=== PATIENT | male | born 1935 | race Caucasian/White ===

== ENCOUNTER → 2021-11-26 | Day surgery (SDC) | payer MEDICARE ==
[2021-11-22 13:36] VITALS: BMI 22.7
[~2021-11-26] MED LIST: LACTATED RINGERS 1,000 ML IV SCH; LIDOCAINE 1% (10MG/ML) FOR IV START INTRADERMA PRN; PROPOFOL 10 MG/ML 20 ML VIAL IV ONE
[2021-11-26 08:52] VITALS: RESP 16; TEMP 96.3
--- NOTE | 2021-11-26 10:02 | P.PCN ---
Date of Procedure: 11/26/21 Procedure(s) Performed: BRIEF HISTORY: Patient is a 86-year-old pleasant white male scheduled for an elective colonoscopy as a part of value should of positive Cologuard. PROCEDURE PERFORMED: Colonoscopy. PREOPERATIVE DIAGNOSIS: Positive cologuard. IV sedation per Anesthesia. PROCEDURE: After informed consent was obtained, the patient, was brought into the endoscopy unit. IV sedation was administered by Anesthesia under continuous monitoring. Digital rectal examination was normal. Initially the Olympus CF-160 flexible video colonoscope was then inserted in the rectum, gradually advanced into the cecum without any difficulty. Careful examination was performed as the scope was gradually being withdrawn. Ileocecal valve and the appendiceal orifice were visualized and appeared normal. Prep was fair.. Mucosa of the cecum, ascending colon, transverse colon, descending colon, sigmoid colon, and rectum appeared normal. Moderate sigmoid diverticulosis Retroflexion was performed in the rectum and monitor hemorrhoids were seen. The patient tolerated the procedure well. IMPRESSION: Normal-appearing colon from rectum to cecum with no evidence of colorectal neoplasia . Moderate sigmoid diverticulosis Small internal hemorrhoids RECOMMENDATIONS: Findings of this examination were discussed with the patient as well his family. He was advised to be a high-fiber diet and take fiber supplements a regular basis..
[2021-11-26 10:25] VITALS: BP 118/76; PULSE 81
== END ==
LOC: ORWHC2ENDO 07:43
PROVIDERS: ATTEND Internal Medicine Gastroenterology
DX: K62.5 Hemorrhage of anus and rectum (principal); K57.30 Diverticulosis of large intestine without perforation or abscess without bleeding; K64.8 Other hemorrhoids
CPT/HCPCS: 45378; J2704

== ENCOUNTER → 2021-12-19 | Outpatient (CLI) | payer MEDICARE ==
--- NOTE | 2021-12-19 07:42 | US ---
EXAMINATION TYPE: US abdomen comp/pelvis limited DATE OF EXAM: 12/19/2021 COMPARISON: NONE CLINICAL HISTORY: ABD PAIN. RLQ pain for a few weeks, described as sharp pain within RLQ, no known in jury, cholecystectomy EXAM MEASUREMENTS: Liver Length: 14.6 cm Gallbladder Wall: Surgically absent CBD: 0.4 cm Spleen: 9.2 cm Right Kidney: 9.4 x 4.2 x 4.6 cm Left Kidney: 9.9 x 4.7 x 5.4 cm Pancreas: not seen due to bowel gas Liver: intercostal imaging due to bowel gas, wnl Gallbladder: Surgically absent CBD: wnl Spleen: wnl Right Kidney: wnl Left Kidney: wnl Upper IVC: wnl Abd Aorta: distal view only appears wnl Bladder: wnl Bilateral Jets Seen yes RLQ and LLQ - normal peristalsing bowel seen with no focal abnormality to account for patients sympto ms. IMPRESSION: No significant abnormality appreciated at this time.
== END | disposition home or self-care (01) ==
LOC: RADUSWWP 06:48
PROVIDERS: ATTEND Family Medicine
DX: R10.30 Lower abdominal pain, unspecified (principal)
CPT/HCPCS: 76700; 76857

== ENCOUNTER → 2021-12-20 | Outpatient (CLI) | payer MEDICARE ==
[2021-12-20 15:37] LABS: African American GFR (CKD) >90 (>60 ml/min/1.73 sqM); Blood Urea Nitrogen 24 mg/dL (9-20); Non-African American GFR(CKD) 81 (>60 ml/min/1.73 sqM)
--- NOTE | 2021-12-20 18:10 | CT ---
EXAMINATION TYPE: CT abdomen pelvis w con CT DLP: 1023 mGycm, Automated exposure control for dose reduction was used. DATE OF EXAM: 12/20/2021 5:10 PM COMPARISON: None CLINICAL INDICATION:Male, 86 years old with history of R10.30 Lower abd pain R10.813 RLQ abd tenderne ss; Lower abd pain, RLQ abd tenderness TECHNIQUE: Standard CT of the abdomen and pelvis following the administration of 100 cc of Isovue 3 00 IV contrast material and oral contrast. Coronal and sagittal reformats were performed. FINDINGS: LOWER CHEST: Moderate severe coronary artery atherosclerosis. ABDOMEN LIVER: Unremarkable GALLBLADDER AND BILE DUCTS: Unremarkable. PANCREAS: Unremarkable. SPLEEN: Unremarkable. ADRENAL GLANDS: Unremarkable. KIDNEYS AND URETERS: No evidence of hydronephrosis or renal calculus. The ureters are unremarkable. PELVIS BLADDER: Bilateral dilation of the ureters as they attach to the bladder. Are present REPRODUCTIVE: Unremarkable. ABDOMEN & PELVIS STOMACH AND BOWEL: There is a large stool burden throughout the colon with multiple colonic diverticu la present. No evidence of bowel obstruction. The appendix is not definitively visualized. PERITONEUM: No evidence of pneumoperitoneum or free fluid. VASCULATURE: No evidence of aortic aneurysm. Moderate atherosclerosis of the arterial vasculature. MUSCULOSKELETAL: No acute osseous abnormalities. Multilevel disc degeneration changes of the spine wi th dextro scoliosis apex L4. Grade 2 anterolisthesis of L5 on S1 with disc uncovering and moderate bi lateral neural foraminal stenosis. 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 LYMPH NODES: No gross evidence for lymphadenopathy. SOFT TISSUE/ABDOMINAL WALL: Unremarkable IMPRESSION: 1. Large stool burden throughout the colon without evidence for acute process to explain the patient 's pain. 2. Colonic diverticulosis. 3. Bilateral periureteral diverticula. 4. Grade 2 anterolisthesis of L5 on S1 disc uncovering, bilateral spondylolysis and bilateral modera te neural foraminal stenosis 5. Moderate to severe coronary artery atherosclerosis.
== END | disposition home or self-care (01) ==
LOC: RADCTMAIN 14:59
PROVIDERS: ATTEND Physician Assistant
DX: K57.30 Diverticulosis of large intestine without perforation or abscess without bleeding (principal); M43.07 Spondylolysis, lumbosacral region; I25.10 Atherosclerotic heart disease of native coronary artery without angina pectoris
CPT/HCPCS: 82565; 84520; 74177; 36415; Q9967

== ENCOUNTER → 2021-12-25 | Outpatient (CLI) | payer MEDICARE ==
--- NOTE | 2021-12-25 14:43 | XR ---
Limited right hip HISTORY: Right hip pain 2 views the right hip Correlation CT abdomen pelvis 12/20/2021 Bone mineralization is reduced. There is some mild marginal spurring, concentric joint space loss pre sent. Alignment is maintained. There is no fracture or dislocation. Degenerative disc changes are not ed in the lower lumbar spine. There are dense vascular calcifications present. 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
== END | disposition home or self-care (01) ==
LOC: RADXRYALE 13:15
PROVIDERS: ATTEND Physician Assistant
DX: M25.551 Pain in right hip (principal); M43.06 Spondylolysis, lumbar region; M51.36 Other intervertebral disc degeneration, lumbar region
CPT/HCPCS: 73501

== ENCOUNTER → 2022-10-29 | Outpatient (CLI) | payer MEDICARE ==
--- NOTE | 2022-10-29 17:36 | US ---
EXAMINATION TYPE: US venous doppler duplex LE RT DATE OF EXAM: 10/29/2022 5:27 PM COMPARISON: NONE CLINICAL INDICATION: Male, 87 years old with history of M79.661 RLE, I82.401 ACUTE EMBOLISM THROMBOSI S UNSP; Right calf pain. On blood thinners. No hx of DVT SIDE PERFORMED: Right TECHNIQUE: The lower extremity deep venous system is examined utilizing real time linear array sonog shagufta with graded compression, doppler sonography and color-flow sonography. VESSELS IMAGED: Common Femoral Vein Deep Femoral Vein Greater Saphenous Vein * Femoral Vein Popliteal Vein Small Saphenous Vein * Proximal Calf Veins (* superficial vessels) Right Leg: Negative for DVT IMPRESSION: Grayscale, color doppler, spectral doppler imaging performed of the deep veins of the lo wer extremities. There is normal flow, compressibility, vascular waveforms.
== END | disposition home or self-care (01) ==
LOC: RADUSWWP 17:06
PROVIDERS: ATTEND Family Medicine
DX: M79.661 Pain in right lower leg (principal); I82.401 Acute embolism and thrombosis of unspecified deep veins of right lower extremity

== ENCOUNTER → 2022-12-24 | Outpatient (CLI) | payer MEDICARE ==
--- NOTE | 2022-12-25 13:03 | CA ---
Transthoracic Echo Report Name: Maikel Rockwell Age: 87 Gender: M : 1935 Exam Date: 12/24/2022 13:04 Exam Location: [place] [facility] Ht (in): 67 Wt (lb): 140 Ordering Physician: Darwin Estrella DO Attending/Referring Phys: Cold Strip Feeder Palmira Decker [facility] Procedure CPT: Indications: i35.0 Cardiac Hx: Technical Quality: Fair Contrast 1: Total Dose (mL): Contrast 2: Total Dose (mL): MEASUREMENTS (Male / Female) Normal Values 2D ECHO LV Diastolic Diameter PLAX 4.7 cm 4.2 - 5.9 / 3.9 - 5.3 cm LV Systolic Diameter PLAX 3.4 cm IVS Diastolic Thickness 1.0 cm 0.6 - 1.0 / 0.6 - 0.9 cm LVPW Diastolic Thickness 1.0 cm 0.6 - 1.0 / 0.6 - 0.9 cm LV Relative Wall Thickness 0.4 LVOT Diameter 2.0 cm Ascending Aorta Diameter 2.9 cm M-MODE Aortic Root Diameter MM 2.8 cm LA Systolic Diameter MM 4.2 cm LA Ao Ratio MM 1.5 AV Cusp Separation MM 0.7 cm DOPPLER AV Peak Velocity 279.9 cm/s AV Peak Gradient 31.3 mmHg AV Mean Velocity 191.9 cm/s AV Mean Gradient 16.4 mmHg AV Velocity Time Integral 65.0 cm LVOT Peak Velocity 107.3 cm/s LVOT Peak Gradient 4.6 mmHg LVOT Velocity Time Integral 25.9 cm LVOT Stroke Volume 81.6 cm??? LVOT Stroke Volume Index 47.0 ml/m??? LVOT Cardiac Index 2495.5 cm???/min???m??? AV Area Cont Eq vti 1.3 cm??? AV Area Cont Eq pk 1.2 cm??? MV Peak Velocity 110.5 cm/s MV Peak Gradient 4.9 mmHg MV Mean Velocity 49.3 cm/s MV Mean Gradient 1.3 mmHg MV Velocity Time Integral 31.6 cm MR Peak Velocity 527.7 cm/s MR Peak Gradient 111.4 mmHg Mitral E Point Velocity 108.2 cm/s MV Deceleration Time 162.7 ms LV E' Lateral Velocity 11.7 cm/s Mitral E to LV E' Lateral Ratio 9.3 LV E' Septal Velocity 7.7 cm/s Mitral E to LV E' Septal Ratio 14.1 TR Peak Velocity 298.8 cm/s TR Peak Gradient 35.7 mmHg Right Atrial Pressure 15.0 mmHg Pulmonary Artery Systolic Pressu 50.7 mmHg Right Ventricular Systolic Press 50.7 mmHg FINDINGS Left Ventricle Mildly increased left ventricular wall thickness. Left ventricular wall thickness at upper limits of normal. No obvious regional wall motion abnormalities. Left ventricular ejection fraction is estimated at 50-55%. Right Ventricle Mild right ventricular dilatation. Moderate pulmonary hypertension. Right Atrium Moderate right atrial dilatation. Left Atrium Severe left atrial dilatation. Mitral Valve Structurally normal mitral valve. Moderate mitral regurgitation. Aortic Valve Diffuse thickening of the aortic valve cusps with reduced excursion. Moderate aortic stenosis with a peak gradient of 31 mmHg and a mean gradient of 16.4 mmHg. Mild aortic regurgitation. Tricuspid Valve Structurally normal tricuspid valve. Mild tricuspid regurgitation. Pulmonic Valve Pulmonic valve not well visualized. Mild pulmonic regurgitation. Pericardium No pericardial effusion. Aorta Normal size aortic root and proximal ascending aorta. CONCLUSIONS Preserved LV systolic function Severe left atrial enlargement Moderate aortic stenosis Moderate mitral regurgitation Previewed by: Dr. Nino Torrez MD (Electronically Signed) Final Date: 25 December 2022 13:02
== END | disposition home or self-care (01) ==
LOC: RADECHMAIN 12:54
PROVIDERS: ATTEND Internal Medicine Cardiovascular Disease
DX: I08.0 Rheumatic disorders of both mitral and aortic valves (principal)
CPT/HCPCS: 93306